=== PATIENT | male | born 1945 | race Caucasian/White ===

== ENCOUNTER 2019-05-23 06:05 | Day surgery (SDC) | payer OTHER ==
[2019-05-14 12:12] VITALS: BMI 20.5
[2019-05-23] MEDS ORDERED: LIDOCAINE HCL 1%, 10 MG/ML (20ML VIAL) ONE (07:33)
[2019-05-23] MEDS ORDERED: BUPIVACAINE HCL/PF 0.5% (5 MG/ML) 30 ML VIAL IJ ONE (07:33)
[2019-05-23] MEDS ORDERED: MIDAZOLAM HCL 2 MG/2 ML SINGLE DOSE VIAL ONE (09:43)
--- NOTE | 2019-05-23 09:45 | DS ---
Physical Examination Vital Signs: Vital Signs Temperature 99.5 F 05/23/19 06:58 Pulse Rate 84 05/23/19 06:58 Respiratory Rate 14 05/23/19 06:58 Blood Pressure 96/57 L 05/23/19 06:58 O2 Sat by Pulse Oximetry (%) 98 05/23/19 06:58 Findings/Remarks: stable post operatively, dressing is clean and dry Constitutional: Yes: Well Nourished, No Distress, Calm Eyes: Yes: Conjunctiva Clear, EOM Intact HENT: Yes: Atraumatic, Normocephalic Neck: Yes: Supple, Trachea Midline Cardiovascular: Yes: Regular Rate and Rhythm, S1, S2 Respiratory: Yes: Regular, CTA Bilaterally Gastrointestinal: Yes: Normal Bowel Sounds, Soft. No: Splenomegaly, Tenderness ...Rectal Exam: Yes: Deferred Renal/: No: CVA Tenderness - Left, CVA Tenderness - Right Breast(s): No: Mass, Skin Changes Musculoskeletal: Yes: Joint Stiffness, Muscle Weakness. No: Muscle Pain Extremities: Yes: Other (contracture and spasticisty). No: Cool, Cyanosis Edema: No Peripheral Pulses WNL: Yes Peripheral Pulses: Left Radial: 2+, Right Radial: 2+, Left Doralis Pedis: 2+, Right Dorsalis Pedis: 2+, Left Femoral: 2+, Right Femoral: 2+ Wound/Incision: Yes: Clean/Dry, Well Approximated, Dressing Dry and Intact Neurological: Yes: Alert, Tremors, Unresponsive, Weakness. No: Oriented Psychiatric: Yes: Alert. No: Oriented Discharge Summary Problems reviewed: Yes Reason For Visit: OSTEOMYLITIS RT SMALL FINGER right small finger chronic osteomyelitis Procedures: Principal: revision amputation of right small finger distal joint Hospital Course: admitted for ambulatory procedure, uneventful procedure. stable for transfer to [place] Plan of Treatment: f/u in 2 weeks in [place] at [facility] Condition: Guarded - Instructions Diet, Activity, Other Instructions: Postoperative instructions: You had a revision amputation of right small finger tip on 05/23/[address] Sam Nelson of [facility]. Activity: Resume your usual activities gradually, but no heavy exertion or lifting more than 10-15 pounds for 4-6 weeks. Please keep dressing in place clean and dry until followup appointment. Eat lightly at first, but advance to your usual diet as tolerated. Pain: For pain, you may use and alternate Tylenol (acetaminophen) 1-2 pills and/ or ibuprofen 200 mg (1-3 pills) every 6 hours each as needed; this means that you can take one OR the other at 3-hour intervals. If you are prescribed a Tylenol/narcotic combination for severe pain, use it instead of plain Tylenol as needed and switch back when your pain starts decreasing. Do not take more than 4000 mg of acetaminophen in a day. Take medications as prescribed or indicated on the labeling. Follow-up: Call Dr. Nelson' office at [phone] to make your postop appointment (Tuesday in approximately 2 weeks after surgery as advised). Clinic is held in the [facility] on the fifth floor, [facility]. Call the office if you have: * increasing pain not responsive to pain medication * fever of 101F or higher * unusual or increasing bleeding or drainage from wounds * increasing redness or swelling at wound sites Also, see your primary medical doctor within 1-2 weeks. Disposition: [facility] - Home Medications Comprehensive Discharge Medication List: Ambulatory Orders Acetaminophen [Tylenol] 2 tab PO DAILY 04/10/19 Ascorbic Acid [Vitamin C -] 1 tab PO DAILY 04/10/19 Aspirin [ASA -] 1 tab PO DAILY 04/10/19 Atorvastatin Ca [Lipitor] 1 tab PO HS 04/10/19 Bacitracin - [Bacitracin Topical Ointment -] 1 appful TP Q12H 04/10/19 Carbamazepine 1 tab PO Q12H 04/10/19 Cran/Vitc/Mannose/Fos/Bromeln [Uti-Stat Liquid] 30 ml PO DAILY 04/10/19 Ergocalciferol (Vitamin D2) [Vitamin D2] 1 tab PO Q7D 04/10/19 Ferrous Sulfate 1 tab PO DAILY 04/10/19 Haloperidol Injection [Haldol Injection (Fast Acting) -] 1 ml IM Q30D 04/10/19 Hydrocortisone [Proctozone-Hc] 1 appful TP Q12H 04/10/19 Linagliptin [Tradjenta] 1 tab PO DAILY 04/10/19 Metoprolol Tartrate [Lopressor -] 50 mg PO Q12H 04/10/19 Polyethylene Glycol 3350 17 gm PO HS 04/10/19 Prescription Drug Monitoring Program (I-STOP) results: I-STOP not reviewed
--- NOTE | 2019-05-23 09:45 | OP ---
Operative Note - Note: Operative Date: 05/23/19 Pre-Operative Diagnosis: right smal finger tip cheonic osteomylitis Operation: revision amputation of right small finger tip at distal joint Findings: right small finger distal tip with chronic osteomyelitis changes. fish mouth incision. debrided back to head of middle phalanyx Post-Operative Diagnosis: Same as Pre-op Surgeon: Sam Nelson Anesthesiologist/SPECIALIST WOUND CARE: Andrew Valera Anesthesia: Local (0.5% marcaine ), MAC Specimens Removed: right small finger tip and bone culture (distal phalnyx) Estimated Blood Loss (mls): 2 Instrument used (Debridements only): scalpel, roungeur Fluid Volume Replaced (mls): 200 Operative Report Dictated: Yes
--- NOTE | 2019-05-23 09:45 | HP ---
Admitting History and Physical - Admission Chief Complaint: right small finger tip necrosis History of Present Illness: 74yo male from [place] with PMH scizophrenia, advanced dementia, CHF, presents with bilatral upper eztremity contractures and severe spasticity and right small finger tip necrosis. in today for revision amputation of the affected digit. History Source: Patient, Medical Record Limitations to Obtaining History: No Limitations - Past Medical History Cardiovascular: Yes: CHF, HTN Psych: Yes: Schizophrenia Additional Past Medical History: advanced dementia - Advance Directives Advance Directives: Yes: DNR - Smoking History Smoking history: Unknown if ever smoked Have you smoked in the past 12 months: No - Alcohol/Substance Use Hx Alcohol Use: No Home Medications - Allergies Allergies/Adverse Reactions: Allergies Allergy/AdvReac Type Severity Reaction Status Date / Time No Known Allergies Allergy Verified 05/23/19 06:59 - Home Medications Home Medications: Ambulatory Orders Acetaminophen [Tylenol] 2 tab PO DAILY 04/10/19 Ascorbic Acid [Vitamin C -] 1 tab PO DAILY 04/10/19 Aspirin [ASA -] 1 tab PO DAILY 04/10/19 Atorvastatin Ca [Lipitor] 1 tab PO HS 04/10/19 Bacitracin - [Bacitracin Topical Ointment -] 1 appful TP Q12H 04/10/19 Carbamazepine 1 tab PO Q12H 04/10/19 Cran/Vitc/Mannose/Fos/Bromeln [Uti-Stat Liquid] 30 ml PO DAILY 04/10/19 Ergocalciferol (Vitamin D2) [Vitamin D2] 1 tab PO Q7D 04/10/19 Ferrous Sulfate 1 tab PO DAILY 04/10/19 Haloperidol Injection [Haldol Injection (Fast Acting) -] 1 ml IM Q30D 04/10/19 Hydrocortisone [Proctozone-Hc] 1 appful TP Q12H 04/10/19 Linagliptin [Tradjenta] 1 tab PO DAILY 04/10/19 Metoprolol Tartrate [Lopressor -] 50 mg PO Q12H 04/10/19 Polyethylene Glycol 3350 17 gm PO HS 04/10/19 Review of Systems - Review of Systems Constitutional: denies: Chills, Fever Eyes: denies: Blind Spots, Recent Change in Vision HENT: denies: Difficult Swallowing, Throat Pain Neck: denies: Decreased ROM, Tenderness Cardiovascular: denies: Chest Pain, Palpitations Respiratory: denies: Cough, SOB Gastrointestinal: denies: Abdominal Pain, Constipation, Diarrhea Genitourinary: denies: Burning, Discharge Breasts: reports: No Symptoms Reported. denies: Pain Integumentary: denies: Lesions, Lump Neurological: denies: Seizure, Syncope Endocrine: denies: Unexplained Weight Gain, Unexplained Weight Loss Hematology/Lymphatic: denies: Easily Bruised, Excessive Bleeding Psychiatric: denies: Anxiety, Depression Physical Examination Vital Signs: Vital Signs Temperature 99.5 F 05/23/19 06:58 Pulse Rate 84 05/23/19 06:58 Respiratory Rate 14 05/23/19 06:58 Blood Pressure 96/57 L 05/23/19 06:58 O2 Sat by Pulse Oximetry (%) 98 05/23/19 06:58 Constitutional: Yes: Well Nourished, No Distress, Calm Eyes: Yes: Conjunctiva Clear, EOM Intact HENT: Yes: Atraumatic, Normocephalic Neck: Yes: Supple, Trachea Midline Cardiovascular: Yes: Pulse Irregular, S1, S2 Respiratory: Yes: Regular, CTA Bilaterally Gastrointestinal: Yes: Normal Bowel Sounds, Soft ...Rectal Exam: Yes: Deferred Renal/: No: CVA Tenderness - Left, CVA Tenderness - Right Breast(s): No: Mass, Skin Changes Musculoskeletal: No: Muscle Pain, Muscle Weakness Extremities: No: Cool, Cyanosis Edema: No Peripheral Pulses WNL: Yes Peripheral Pulses: Left Radial: 2+, Right Radial: 2+, Left Doralis Pedis: 2+, Right Dorsalis Pedis: 2+, Left Femoral: 2+, Right Femoral: 2+ Wound/Incision: Yes: Clean/Dry, Well Approximated Neurological: Yes: Alert, Oriented Psychiatric: Yes: Alert, Oriented Imaging - Results X-ray: Report Reviewed, Image Reviewed Problem List - Problems (1) Chronic osteomyelitis involving hand Assessment/Plan: Right Small finger tip chronic osteomylitis for revision amputation NPO and IVF hydation SCD IV antibiotics Discussed with patient risks, benefits and alternatives of Right small finger revision amputation, including but not limited to bleeding, infection, injury to adjacent structures, need for further procedures, ; alternatives include antibiotics, delayed or no surgery - risks of this include failure of nonoperative therapy, recurrence, . Patient desires to proceed with operation - will take to OR for above. Informed consent signed for same. Problems reviewed: Yes Code(s): M86.649 - OTHER CHRONIC OSTEOMYELITIS, UNSPECIFIED HAND (2) Contracture of right hand Problems reviewed: Yes Code(s): M24.541 - CONTRACTURE, RIGHT HAND (3) Dry gangrene Problems reviewed: Yes Code(s): I96 - GANGRENE, NOT ELSEWHERE CLASSIFIED (4) Spasticity Problems reviewed: Yes Code(s): R25.2 - CRAMP AND SPASM
[2019-05-23] MEDS ORDERED: ceFAZolin 2 GRAM PREMIX BAG IVPB ONE (10:10)
[2019-05-23] MEDS ORDERED: ceFAZolin SODIUM 1 GM VIAL ONE (10:10)
[2019-05-23] MEDS ORDERED: LIDOCAINE HCL 1%, 10 MG/ML (20ML VIAL) INF ONE (10:26)
[2019-05-23] MEDS ORDERED: BUPIVACAINE HCL/PF 0.5% (5MG/ML) 10 ML VIAL IJ ONE (10:27)
[2019-05-23] MEDS ORDERED: NITROGLYCERIN 2% OINTMENT - 1GM PACKET TD ONE ×2 (11:21→12:31)
[2019-05-23] MEDS ORDERED: METOPROLOL TARTRATE 5 MG/5 ML VIAL ONE (11:26)
--- NOTE | 2019-05-23 12:20 | EKG ---
Test Reason : Blood Pressure : / mmHG Vent. Rate : 124 BPM Atrial Rate : 113 BPM P-R Int : 000 ms QRS Dur : 116 ms QT Int : 336 ms P-R-T Axes : 000 -89 016 degrees QTc Int : 482 ms ACCELERATED JUNCTIONAL RHYTHM WITH RETROGRADE CONDUCTION LEFT AXIS DEVIATION RIGHT BUNDLE BRANCH BLOCK SEPTAL INFARCT , AGE UNDETERMINED ABNORMAL ECG NO PREVIOUS ECGS AVAILABLE Confirmed by AARON CHAPIN MD ([id number]) on 05/23/2019 12:20:12 PM Referred By: Hal BINGHAM Confirmed By:AARON CHAPIN MD
[2019-05-23] MEDS ORDERED: METOPROLOL TARTRATE 5 MG/5 ML VIAL IVPUSH ONE (12:28)
[2019-05-23 13:57] VITALS: BP 105/75; PULSE 106
[2019-05-23 14:38] VITALS: TEMP 97.6
--- NOTE | 2019-05-24 15:39 | OP ---
DATE OF OPERATION: 05/23/2019 PREOPERATIVE DIAGNOSIS: Right small finger chronic osteomyelitis. POSTOPERATIVE DIAGNOSIS: Right small finger chronic osteomyelitis. PROCEDURE: Revision amputation, right small finger distal tip, at the distal interphalangeal joint. ATTENDING SURGEON: Sam Nelson MD SEAM RUBBER: No one. ANESTHESIA: Efrem Valrea MD ANESTHESIA TYPE: Local with MAC. Local consisted of 0.5% Marcaine, a total of 10 mL given in ring block fashion. ESTIMATED BLOOD LOSS: 2 mL. IV FLUID ADMINISTERED: 200 mL. INSTRUMENTS USED FOR DEBRIDEMENT: Scalpel and rongeur. SPECIMEN: Right small fingertip and bone culture of the distal phalanx. BRIEF FINDINGS: The patient had a small finger distal tip wound with chronic osteomyelitis changes, exposed distal phalanx. A fishmouth revision amputation through the distal interphalangeal joint was made and debrided back to the head of the middle phalanx to get clean and healthy unaffected tissue. INDICATION: The patient was sent from the half-way after ambulatory surgery, which was agreed upon between his daughter and his attending primary care. They were counseled regarding risks, benefits, and alternatives to surgical procedure proposed, signed informed consent, and he was taken for the procedure. The patient was brought to the operating room, was placed in supine position on the operating table with the right arm extended at 90 degrees perpendicular to the body's midline axis at the shoulder. Given his contracture, it was difficult but he was positioned, properly padded on bony prominences. Lower extremities had SCDs placed to compression. He was given supplemental oxygen, induced with MAC sedation. When the patient was stable on monitors. We began first with a ring block, consisted of 0.5% Marcaine, a total of 10 mL, in ring block fashion. A formal timeout was then done, identifying the operative site and procedure, the louie was observed, with all parties in agreement. We began first with a fishmouth incision focused over the distal interphalangeal joint to allow closure of the tip, with healthy unaffected skin. This was scribed on the skin, and with a tourniquet in place, the incision was incised with a 15 blade scalpel. It was deepened and widened through subcutaneous tissue to the distal interphalangeal joint with a scalpel. The joint was then taken down and the finger was debrided with rongeur and sent for final pathologic diagnosis. Additionally, the distal phalanx, which was exposed, was sent for tissue culture. The head of the middle metacarpal was then exposed, which was then debrided back using rongeur. The bone was chamfered to a smooth finish, and then the for closure of the skin was placed. The patient then had the tourniquet released and surgical hemostasis was observed and obtained with Bovie bipolar where necessary. The neurovascular bundles on either side, flanking the ulnar and lateral positions, were cauterized as well. We then took the time to check for perfusion of the skin and then the skin was closed with vertical mattress sutures, 4-0 nylon in interrupted fashion in 3 places and then interposed interrupted 4-0 nylon to close the skin edges. The patient tolerated procedure well, a sterile dressing was placed including Xeroform, 4 x 4 gauze, with webspace protection, a soft dressing was placed. The patient was awoken from general anesthesia, having tolerated the procedure well. All instrument counts were correct. The specimen was passed off for pathologic diagnosis. MD VIRIDIANA Nettles/[id number]
--- NOTE | 2019-05-28 09:57 | PATH ---
Surgical Pathology Report Patient Name: JAYSHREE MARX [facility]. Rec. #: [id number] /Age/Gender: 1945 (Age: 74) / M Account: [id number] Location: [facility] SURGICAL Taken: 05/23/2019 Received: 05/23/2019 Reported: 05/28/2019 Physicians: Sam Nelson M.D. Specimen(s) Received RIGHT SMALL FINGER TIP Clinical History Right small finger osteomyelitis Final Diagnosis SMALL FINGER TIP, RIGHT, AMPUTATION: PORTION OF DIGIT WITH MARKED ACUTE AND CHRONIC INFLAMMATION, ULCERATION, AND REACTIVE CHANGES. UNDERLYING BONE WITH REMODELING AND REACTIVE CHANGES. NO ACUTE OSTEOMYELITIS IDENTIFIED. SURGICAL MARGINS ARE VIABLE. Electronically Signed Selena Macias M.D. Gross Description Received in formalin labeled "right small finger" is a portion of the digit measuring 1.5 x 2 x 1.5 cm. One end/tip shows an ulcerated lesion measuring 1 x 0.7 cm, 0.7 cm from surgical margin. The lesion does not appear to involve underlying bone. Tower Foreman section is submitted in 3 cassettes as follows: 1-bone and soft tissue margin; 2- 3-lesion and underlying bone. MLSZ/05/23/2019 [email or web address]/05/23/2019
== END 2019-05-23 14:30 ==
LOC: JASU-SURG 06:05
PROC: 0X6V0Z3 Detachment at Right Little Finger, Low, Open Approach (ICD-10-PCS; principal; 2019-05-23 07:30)
DX: M86.641 Other chronic osteomyelitis, right hand (principal); I10 Essential (primary) hypertension; F20.9 Schizophrenia, unspecified; F03.90 Unspecified dementia, unspecified severity, without behavioral disturbance, psychotic disturbance, mood disturbance, and anxiety; I50.9 Heart failure, unspecified
CPT/HCPCS: 82962; 87070; 87075; 87186; 87205; 88305-TC; 88311-TC; 93005; 93010; 94760